=== PATIENT | female | born 1940 | race Caucasian/White ===

== ENCOUNTER → 2016-12-03 | Outpatient (CLI) | payer MEDICARE, OTHER ==
[~2016-12-03] MED LIST: ALLEGRA180 MG PO; BENTYL 10MG10 MG/CAP PO; CALTRATE 600 +1 TAB PO; CARAFATE1 GM PO; CIPRO 250MG TA250 MG PO; COENZYME Q-10200 M1 PO; CYANOCOBAL1000 MCG/M IM; DIFLUCAN200 MG PO; DIPENTUM PO; DIPENTUM250 MG PO; ENZYME PO; EXCEDRIN TENSION HA PO; LASIX 20MG TABL20 MG PO; MACROBID 1100 MG/CAP PO; NEXIUM 20MG20 MG; NEXIUM 40MG40 MG PO; NEXIUM I.V. 40M40 MG; NEXIUM40 MG PO; PERCOCET 325 MG1 TA2 PO; PROBIOTIC FORMU1 CAP PO; PROBIOTIC-MAJOR PO; PYRIDIUM200 M1 PO; TOPROL XL 50MG50 MG PO; TOPROL XL25 MG PO; TYLENOL 500MG500 MG PO; TYLENOL ARTHRI650 M1 PO; ULORIC40 MG PO; ULTRACET TABL1 UDTAB PO; ULTRAM 50MG TAB50 MG PO; VALTREX 50500 MG/TAB PO; VITAMINE200; VOLTAREN 75 DR75 MG PO; ZOFRAN4 M1 PO; ZYRTEC 10MG10 MG PO
== END ==
LOC: MC.RAD 13:00
DX: Z12.31 Encounter for screening mammogram for malignant neoplasm of breast (principal)

== ENCOUNTER 2016-12-17 09:00 | Outpatient (CLI) | payer MEDICARE, OTHER ==
[2006-05-13 07:12] VITALS: BP 127/64
[~2016-12-17] VITALS: Ht 167.7 cm; Wt 83.6 kg
[~2016-12-17 09:00] MED LIST changes: -VITAMINE200
[2016-12-17] MEDS ORDERED: VITAMINE200 (09:40)
[2016-12-17 11:15] LABS: HEMATOCRIT 38.2 % (37.0-47.0); HEMOGLOBIN 12.5 g/dl (12.5-16.0); MEAN CELL VOLUME 97 fl (80.0-100.0); MEAN CORPUSCULAR HEMOGLOBIN 32 pg (27.0-31.0); MEAN CORPUSCULAR HGB CONC 33 g/dl (33.0-37.0); MEAN PLATELET VOLUME 9.2 fl (7.4-10.4); PLATELET COUNT 220 K/mm3 (130-400); RED BLOOD COUNT 3.93 M/mm3 (4.10-5.30); REDCELL DISTRIBUTION WIDTH-CV 12.6 % (11.5-14.5); WHITE BLOOD COUNT 5.5 K/mm3 (4.8-10.8)
[2016-12-17 11:23] LABS: PROTHROMBIN TIME 11.2 SECONDS (9.7-12.8)
[2016-12-17 11:28] LABS: CALCIUM 9.9 mg/dL (8.4-10.2); CREATININE, serum 0.67 mg/dL (0.52-1.25); POTASSIUM 4.2 mmol/L (3.4-5.0)
[2016-12-17 11:33] VITALS: BP 143/74; PULSE 71
[2016-12-17 12:45] VITALS: BP 128/93; PULSE 72
[2016-12-17 13:00] VITALS: BP 127/72; PULSE 67
[2016-12-17 13:15] VITALS: BP 132/65; PULSE 62
[2016-12-17 13:30] VITALS: BP 116/74; PULSE 65
== END 2016-12-17 14:00 | disposition home or self-care (01) ==
LOC: COL.RAD 09:00
PROVIDERS: Internal Medicine Cardiovascular Disease
DX: I08.3 Combined rheumatic disorders of mitral, aortic and tricuspid valves (principal); R94.39 Abnormal result of other cardiovascular function study
CPT/HCPCS: G9654; J2405; J2704

== ENCOUNTER → 2017-02-14 | Outpatient (CLI) | payer MEDICARE, OTHER ==
[~2017-02-14] MED LIST changes: +VITAMINE200
== END ==
LOC: COL.CARD 09:21
DX: R00.2 Palpitations (principal)

== ENCOUNTER → 2017-11-13 | Outpatient (CLI) | payer MEDICARE, OTHER | LOC: MC.RAD 12:54 | DX: Z01.89 Encounter for other specified special examinations (principal) ==

== ENCOUNTER → 2018-01-23 | Outpatient (CLI) | payer MEDICARE, OTHER | LOC: COL.VAS 01-21 10:30 | DX: R60.0 Localized edema (principal) ==

== ENCOUNTER → 2018-02-16 | Outpatient (CLI) | payer MEDICARE, OTHER | LOC: COL.RAD 14:49 | DX: R10.9 Unspecified abdominal pain (principal) ==

== ENCOUNTER 2018-03-17 21:47 | Emergency (ER) | payer MEDICARE, OTHER ==
[2006-05-13 07:12] VITALS: BP 127/64
[~2018-03-17] VITALS: Ht 170.2 cm; Wt 86.4 kg
[2018-03-17 21:50] VITALS: BP 180/77; TEMP 98.4
[2018-03-17] MEDS ORDERED: NORCO 325 MG-51 TAB PO (22:37)
[2018-03-17 23:20] VITALS: PULSE 77
== END 2018-03-17 23:10 | disposition home or self-care (01) ==
LOC: COL.ER 21:47
DX: S52.501A Unspecified fracture of the lower end of right radius, initial encounter for closed fracture (principal); S52.611A Displaced fracture of right ulna styloid process, initial encounter for closed fracture; I10 Essential (primary) hypertension; E03.9 Hypothyroidism, unspecified; W01.0XXA Fall on same level from slipping, tripping and stumbling without subsequent striking against object, initial encounter
CPT/HCPCS: Q4050

== ENCOUNTER → 2018-03-24 | Outpatient (CLI) | payer MEDICARE, OTHER ==
[~2018-03-24] VITALS: Ht 170.2 cm; Wt 88.9 kg
[~2018-03-24] MED LIST changes: +B-121000 MCG PO; -EXCEDRIN TENSION HA PO; +EXCEDRIN1 TAB PO; +NORCO 325 MG-51 TAB PO; +TOPROL XL100 MG PO
[2018-03-24 05:48] VITALS: BP 147/53; PULSE 82
[2018-03-24 07:24] VITALS: BP 131/65; PULSE 94
[2018-03-24 07:25] VITALS: BP 159/68; PULSE 91
[2018-03-24 07:26] VITALS: BP 160/74; PULSE 89
== END ==
LOC: COL.CARD 03-23 05:45
DX: I35.9 Nonrheumatic aortic valve disorder, unspecified (principal)
CPT/HCPCS: A9502; J2785

== ENCOUNTER 2018-03-27 22:14 | Observation (INO) | payer MEDICARE, OTHER ==
[~2018-03-27] VITALS: Ht 170.2 cm; Wt 89.3 kg
[2018-03-27] MEDS ORDERED: DIFLUCAN200 MG PO (23:24)
[2018-03-27] MEDS ORDERED: PRESERVISIONLUT (23:26)
[2018-03-28 00:07] VITALS: BP 134/91; PULSE 80; TEMP 97.5
[2018-03-28 00:13] VITALS: BP 134/91; PULSE 80; TEMP 97.5
[2018-03-28 00:14] LABS: BASO # 0.1 (0.0-0.2); BASO % 0.6 % (0.0-2.0); EOS # 0.2 (0.0-0.7); EOS % 2.5 % (0-4.0); GRAN # 5.2 (1.4-6.5); GRAN % 64.9 % (42.2-75.2); HEMATOCRIT 36.5 % (37.0-47.0); HEMOGLOBIN 12.2 g/dl (12.5-16.0); LYMPH % 25.1 % (20.0-51.0); MEAN CELL VOLUME 94 fl (80.0-100.0); MEAN CORPUSCULAR HEMOGLOBIN 31 pg (27.0-31.0); MEAN CORPUSCULAR HGB CONC 33 g/dl (33.0-37.0); MEAN PLATELET VOLUME 8.6 fl (7.4-10.4); MONO # 0.5 (0.1-0.6); MONO % 6.7 % (1.7-9.3); PLATELET COUNT 264 K/mm3 (130-400); RED BLOOD COUNT 3.89 M/mm3 (4.10-5.30); REDCELL DISTRIBUTION WIDTH-CV 12.9 % (11.5-14.5)
[2018-03-28 00:30] LABS: ALBUMIN 4.2 gm/dL (3.5-5.0); BILIRUBIN,TOTAL 0.3 mg/dL (0.0-1.0); CALCIUM 9.6 mg/dL (8.4-10.2); CREATININE, serum 0.73 mg/dL (0.52-1.25); TOTAL PROTEIN 7.8 gm/dL (6.4-8.2)
[2018-03-28 03:53] VITALS: BP 158/79; PULSE 87; TEMP 98.2
[2018-03-28 09:39] VITALS: BP 159/82; PULSE 88; TEMP 98.1
[2018-03-28] MEDS ORDERED: ULTRAM 50MG TAB50 MG PO (11:03)
[2018-03-28] MEDS ORDERED: OCUVITE1 TA1 PO (11:04)
== END 2018-03-28 12:26 | disposition home or self-care (01) ==
LOC: MEDICAL 22:14
PROVIDERS: Nurse Practitioner
DX: R53.1 Weakness (principal); Z74.09 Other reduced mobility; R51 Headache; J40 Bronchitis, not specified as acute or chronic; M10.00 Idiopathic gout, unspecified site; I10 Essential (primary) hypertension; E78.5 Hyperlipidemia, unspecified; M06.9 Rheumatoid arthritis, unspecified; M81.0 Age-related osteoporosis without current pathological fracture; R73.03 Prediabetes; Z90.49 Acquired absence of other specified parts of digestive tract; Z90.710 Acquired absence of both cervix and uterus; Z88.6 Allergy status to analgesic agent; Z88.1 Allergy status to other antibiotic agents; Z88.3 Allergy status to other anti-infective agents; Z88.0 Allergy status to penicillin; Z88.2 Allergy status to sulfonamides; Z88.8 Allergy status to other drugs, medicaments and biological substances

== ENCOUNTER 2018-04-03 05:56 | Emergency (ER) | payer MEDICARE, OTHER ==
[2006-05-13 07:12] VITALS: BP 127/64
[~2018-04-03] VITALS: Ht 170.2 cm; Wt 86.4 kg
[~2018-04-03 05:56] MED LIST changes: +OCUVITE1 TA1 PO; +PRESERVISIONLUT
[2018-04-03 06:00] VITALS: TEMP 98
[2018-04-03 07:03] LABS: BASO % 0.6 % (0.0-2.0); EOS # 0.2 (0.0-0.7); EOS % 2.2 % (0-4.0); GRAN # 4.5 (1.4-6.5); GRAN % 62.2 % (42.2-75.2); LYMPH % 27.9 % (20.0-51.0); MEAN CELL VOLUME 92 fl (80.0-100.0); MEAN CORPUSCULAR HEMOGLOBIN 31 pg (27.0-31.0); MEAN CORPUSCULAR HGB CONC 34 g/dl (33.0-37.0); MEAN PLATELET VOLUME 8.8 fl (7.4-10.4); MONO # 0.5 (0.1-0.6); MONO % 6.8 % (1.7-9.3); PLATELET COUNT 258 K/mm3 (130-400); RED BLOOD COUNT 3.85 M/mm3 (4.10-5.30); REDCELL DISTRIBUTION WIDTH-CV 12.7 % (11.5-14.5)
[2018-04-03 07:04] LABS: HEMATOCRIT 35.5 % (37.0-47.0)
[2018-04-03 07:07] LABS: INR 1.1 (0.8-3.0); PROTHROMBIN TIME 12.2 SECONDS (9.7-12.8)
[2018-04-03 07:11] LABS: ALANINE AMINOTRANSFERASE 23 U/L (9-52); ALBUMIN 4.2 gm/dL (3.5-5.0); ALKALINE PHOSPHATASE 86 U/L (50-136); ANION GAP 15 mmol/L (7-16); AST,SGOT 23 U/L (15-37); BILIRUBIN,TOTAL 0.4 mg/dL (0.0-1.0); BLOOD UREA NITROGEN 17 mg/dL (7-17); C-REACTIVE PROTEIN 0.6 mg/dL (0.0-0.9); CARBON DIOXIDE 24 mmol/L (22-30); CHLORIDE 99 mmol/L (98-107); CREATININE, serum 0.68 mg/dL (0.52-1.25); GLUCOSE 120 mg/dL (74-106); POTASSIUM 3.8 mmol/L (3.4-5.0); SODIUM 138 mmol/L (137-145); TOTAL PROTEIN 7.8 gm/dL (6.4-8.2)
[2018-04-03 07:22] LABS: TROPONIN-I < 0.012 ng/mL (0.000-0.034)
[2018-04-03 09:31] VITALS: BP 149/105; PULSE 82
[2018-04-03] MEDS ORDERED: PERCOCET 325 MG1 TA2 PO (09:34)
[2018-04-03] MEDS ORDERED: LIDODERM 5% PATC1 EA TP (09:36)
== END 2018-04-03 10:00 | disposition home or self-care (01) ==
LOC: COL.ER 05:56
PROVIDERS: Emergency Medicine
DX: R07.89 Other chest pain (principal)
CPT/HCPCS: Q9967

== ENCOUNTER 2018-04-29 15:39 | Emergency (ER) | payer MEDICARE, OTHER ==
[2006-05-13 07:12] VITALS: BP 127/64
[~2018-04-29] VITALS: Ht 170.2 cm; Wt 86.4 kg
[~2018-04-29 15:39] MED LIST changes: +LIDODERM 5% PATC1 EA TP
[2018-04-29 15:41] VITALS: TEMP 97.7
[2018-04-29 16:19] LABS: BASO % 0.6 % (0.0-2.0); EOS # 0.1 (0.0-0.7); GRAN # 4.2 (1.4-6.5); GRAN % 64.3 % (42.2-75.2); HEMATOCRIT 34.7 % (37.0-47.0); HEMOGLOBIN 11.7 g/dl (12.5-16.0); LYMPH # 1.7 (1.2-3.4); LYMPH % 25.9 % (20.0-51.0); MEAN CELL VOLUME 94 fl (80.0-100.0); MEAN CORPUSCULAR HEMOGLOBIN 32 pg (27.0-31.0); MEAN CORPUSCULAR HGB CONC 34 g/dl (33.0-37.0); MEAN PLATELET VOLUME 9.1 fl (7.4-10.4); MONO # 0.5 (0.1-0.6); MONO % 6.9 % (1.7-9.3); PLATELET COUNT 232 K/mm3 (130-400)
[2018-04-29 16:30] LABS: ALANINE AMINOTRANSFERASE 26 U/L (9-52); ALKALINE PHOSPHATASE 71 U/L (50-136); ANION GAP 13 mmol/L (7-16); AST,SGOT 23 U/L (15-37); BILIRUBIN,TOTAL 0.5 mg/dL (0.0-1.0); BLOOD UREA NITROGEN 14 mg/dL (7-17); C-REACTIVE PROTEIN 0.9 mg/dL (0.0-0.9); CALCIUM 9.6 mg/dL (8.4-10.2); CARBON DIOXIDE 23 mmol/L (22-30); CHLORIDE 99 mmol/L (98-107); CREATININE, serum 0.66 mg/dL (0.52-1.25); GLUCOSE 114 mg/dL (74-106); LIPASE 106 U/L (23-300); POTASSIUM 4.6 mmol/L (3.4-5.0); SODIUM 135 mmol/L (137-145); TOTAL PROTEIN 7.5 gm/dL (6.4-8.2)
[2018-04-29 16:42] LABS: TROPONIN-I < 0.012 ng/mL (0.000-0.034)
[2018-04-29] MEDS ORDERED: BENTYL 20MG20 MG/TAB PO (16:56)
[2018-04-29] MEDS ORDERED: PYRIDIUM 100MG100 MG PO (16:56)
[2018-04-29] MEDS ORDERED: NEXIUM 40MG40 MG PO (16:56)
[2018-04-29 17:45] LABS: COLLECTION METHOD CLEAN CATCH
[2018-04-29 17:52] LABS: PH 7 (5-8); SQUAMOUS EPITHELIAL 0-2 /hpf; URINE APPEARANCE Clear; URINE BACTERIA Rare /hpf; URINE BILIRUBIN Negative (NEGATIVE); URINE BLOOD Negative (NEGATIVE); URINE COLOR Amber; URINE GLUCOSE Negative (NEGATIVE); URINE KETONE Negative (NEGATIVE); URINE LEUKOCYTE ESTERASE 2+ (NEGATIVE); URINE NITRATE Positive (NEGATIVE); URINE PROTEIN(semi-quant) Negative (NEGATIVE); URINE RBC 0-2 /hpf; URINE UROBILINOGEN Negative (NEGATIVE)
[2018-04-29] MEDS ORDERED: PHENERGAN 25 TA25 MG PO (18:44)
[2018-04-29] MEDS ORDERED: CIPRO 500MG TA500 MG PO (18:44)
[2018-04-29 19:00] VITALS: BP 136/61; PULSE 64
== END 2018-04-29 19:15 | disposition home or self-care (01) ==
LOC: COL.ER 15:39
PROVIDERS: Emergency Medicine
DX: N39.0 Urinary tract infection, site not specified (principal); I10 Essential (primary) hypertension; E78.5 Hyperlipidemia, unspecified; K21.9 Gastro-esophageal reflux disease without esophagitis; Z90.49 Acquired absence of other specified parts of digestive tract; Z90.710 Acquired absence of both cervix and uterus; Z87.442 Personal history of urinary calculi
CPT/HCPCS: J2270; J2405; J2550; J7030; Q9967

== ENCOUNTER → 2018-06-16 | Outpatient (CLI) | payer MEDICARE, OTHER ==
[~2018-06-16] MED LIST changes: +BENTYL 20MG20 MG/TAB PO; +CIPRO 500MG TA500 MG PO; +PHENERGAN 25 TA25 MG PO; +PYRIDIUM 100MG100 MG PO
== END ==
LOC: MC.RAD 06-12 10:30
DX: N63.23 Unspecified lump in the left breast, lower outer quadrant (principal)

== ENCOUNTER 2018-11-13 08:44 | Emergency (ER) | payer MEDICARE, OTHER ==
[2006-05-13 07:12] VITALS: BP 127/64
[~2018-11-13] VITALS: Ht 170.2 cm; Wt 86.4 kg
[2018-11-13 09:36] LABS: BASO % 0.6 % (0.0-2.0); EOS # 0.1 (0.0-0.7); EOS % 2.7 % (0-4.0); GRAN # 3.1 (1.4-6.5); LYMPH # 1.7 (1.2-3.4); LYMPH % 31.9 % (20.0-51.0); MEAN CELL VOLUME 93 fl (80.0-100.0); MEAN CORPUSCULAR HEMOGLOBIN 32 pg (27.0-31.0); MEAN CORPUSCULAR HGB CONC 34 g/dl (33.0-37.0); MEAN PLATELET VOLUME 9.1 fl (7.4-10.4); MONO # 0.3 (0.1-0.6); MONO % 5.6 % (1.7-9.3); PLATELET COUNT 187 K/mm3 (130-400); RED BLOOD COUNT 3.81 M/mm3 (4.10-5.30)
[2018-11-13 09:44] LABS: HEMATOCRIT 35.6 % (37.0-47.0)
[2018-11-13 09:58] LABS: ALBUMIN 4.3 gm/dL (3.5-5.0); BILIRUBIN,TOTAL 0.4 mg/dL (0.0-1.0); C-REACTIVE PROTEIN 0.7 mg/dL (0.0-0.9); CALCIUM 9.9 mg/dL (8.4-10.2); CREATININE, serum 0.6 mg/dL (0.52-1.25); POTASSIUM 3.9 mmol/L (3.4-5.0); TOTAL PROTEIN 7.2 gm/dL (6.4-8.2)
[2018-11-13 10:04] LABS: COLLECTION METHOD CLEAN CATCH
[2018-11-13 10:11] LABS: PH 6 (5-8); SQUAMOUS EPITHELIAL None Seen /hpf; URINE APPEARANCE Clear; URINE BACTERIA Rare /hpf; URINE BILIRUBIN Negative (NEGATIVE); URINE BLOOD Negative (NEGATIVE); URINE COLOR Amber; URINE GLUCOSE Negative (NEGATIVE); URINE KETONE Negative (NEGATIVE); URINE LEUKOCYTE ESTERASE Negative (NEGATIVE); URINE NITRATE Positive (NEGATIVE); URINE PROTEIN(semi-quant) Negative (NEGATIVE); URINE RBC 0-2 /hpf; URINE UROBILINOGEN >=4.0 mg/dL (NEGATIVE)
[2018-11-13] MEDS ORDERED: PERCOCET 325 MG1 TA2 PO (10:30)
[2018-11-13] MEDS ORDERED: LIDODERM 5% PATC1 EA TP (10:49)
[2018-11-13 11:08] VITALS: BP 155/68; PULSE 69; TEMP 96.6
== END 2018-11-13 11:08 | disposition home or self-care (01) ==
LOC: COL.ER 08:44
PROVIDERS: Physician Assistant
DX: R10.9 Unspecified abdominal pain (principal); Z90.710 Acquired absence of both cervix and uterus; Z90.49 Acquired absence of other specified parts of digestive tract; Z98.890 Other specified postprocedural states

== ENCOUNTER 2019-03-08 14:49 | Outpatient (RCR) | payer MEDICARE, OTHER | END 2019-05-20 | disposition home or self-care (01) | LOC: COL.CR | DX: Z48.812 Encounter for surgical aftercare following surgery on the circulatory system (principal); Z95.2 Presence of prosthetic heart valve ==

== ENCOUNTER → 2019-08-04 | Outpatient (CLI) | payer MEDICARE, OTHER | LOC: MC.RAD 11:00 | DX: Z12.31 Encounter for screening mammogram for malignant neoplasm of breast (principal) ==

== ENCOUNTER → 2020-01-05 | Outpatient (CLI) | payer MEDICARE, OTHER | LOC: COL.RAD 09:18 | DX: R39.14 Feeling of incomplete bladder emptying (principal); R10.12 Left upper quadrant pain ==

== ENCOUNTER → 2020-09-14 | Outpatient (CLI) | payer MEDICARE, OTHER | LOC: MC.RAD 08-10 13:00 | DX: Z12.31 Encounter for screening mammogram for malignant neoplasm of breast (principal) ==

== ENCOUNTER → 2020-12-04 | Outpatient (CLI) | payer MEDICARE, OTHER | LOC: COL.VAS 12:29 | DX: I08.1 Rheumatic disorders of both mitral and tricuspid valves (principal); I27.20 Pulmonary hypertension, unspecified; Z95.2 Presence of prosthetic heart valve ==

== ENCOUNTER 2021-03-28 12:29 | Emergency (ER) | payer MEDICARE, OTHER ==
[2006-05-13 07:12] VITALS: BP 127/64
[~2021-03-28] VITALS: Ht 167.6 cm; Wt 86.4 kg
[2021-03-28 14:11] LABS: COLLECTION METHOD CLEAN CATCH
[2021-03-28 14:23] LABS: PH 7 (5-8); SQUAMOUS EPITHELIAL 0-2 /hpf; URINE APPEARANCE Clear; URINE BACTERIA None Seen /hpf; URINE BILIRUBIN Negative (NEGATIVE); URINE BLOOD Negative (NEGATIVE); URINE COLOR Amber; URINE GLUCOSE Negative (NEGATIVE); URINE KETONE Negative (NEGATIVE); URINE LEUKOCYTE ESTERASE Negative (NEGATIVE); URINE NITRATE Positive (NEGATIVE); URINE PROTEIN(semi-quant) Negative (NEGATIVE); URINE RBC 0-2 /hpf; URINE UROBILINOGEN >=4.0 mg/dL (NEGATIVE)
[2021-03-28] MEDS ORDERED: ULTRAM 50MG TAB50 MG PO (15:04)
[2021-03-28 15:14] VITALS: BP 165/69; PULSE 65
== END 2021-03-28 15:17 | disposition home or self-care (01) ==
LOC: COL.ER 12:29
PROVIDERS: Emergency Medicine
DX: B02.29 Other postherpetic nervous system involvement (principal); I10 Essential (primary) hypertension; Z88.1 Allergy status to other antibiotic agents; Z88.0 Allergy status to penicillin; Z88.2 Allergy status to sulfonamides; Z88.6 Allergy status to analgesic agent; Z91.040 Latex allergy status; Z88.8 Allergy status to other drugs, medicaments and biological substances; Z88.5 Allergy status to narcotic agent; Z87.19 Personal history of other diseases of the digestive system; Z98.890 Other specified postprocedural states

== ENCOUNTER 2021-11-22 09:27 | Emergency (ER) | payer MEDICARE, OTHER ==
[~2021-11-22] VITALS: Ht 170.2 cm; Wt 82.7 kg
[2021-11-22 10:10] LABS: BASO % 0.8 % (0.0-2.0); EOS # 0.1 K/mm3 (0.0-0.7); EOS % 1.9 % (0.0-4.0); GRAN # 3.4 K/mm3 (1.4-6.5); GRAN % 64.8 % (42.2-75.2); HEMOGLOBIN 11.6 g/dl (12.5-16.0); LYMPH # 1.3 K/mm3 (1.2-3.4); LYMPH % 25.7 % (20.0-51.0); MEAN CELL VOLUME 93 fl (80.0-100.0); MEAN CORPUSCULAR HEMOGLOBIN 31 pg (27-31); MEAN CORPUSCULAR HGB CONC 34 g/dl (33.0-37.0); MEAN PLATELET VOLUME 8.8 fl (7.4-10.4); MONO # 0.3 K/mm3 (0.1-0.6); MONO % 6.4 % (1.7-9.3); PLATELET COUNT 218 K/mm3 (130-400); RED BLOOD COUNT 3.73 M/mm3 (4.10-5.30); REDCELL DISTRIBUTION WIDTH-CV 12.5 % (11.5-14.5)
[2021-11-22 10:11] LABS: HEMATOCRIT 34.5 % (37.0-47.0)
[2021-11-22 10:19] LABS: PROTHROMBIN TIME 11.1 SECONDS (9.7-12.8)
[2021-11-22 10:22] LABS: PARTIAL THROMBOPLASTIN TIME 34.4 SECONDS (26.0-37.0)
[2021-11-22 10:26] LABS: ALANINE AMINOTRANSFERASE 13 U/L (0-55); ALBUMIN 3.9 gm/dL (3.4-4.8); ALKALINE PHOSPHATASE 74 U/L (40-150); ANION GAP 10 mmol/L (7-16); AST,SGOT 14 U/L (5-34); BILIRUBIN,TOTAL 0.5 mg/dL (0.2-1.2); BLOOD UREA NITROGEN 15 mg/dL (10-20); CALCIUM 9.5 mg/dL (8.4-10.2); CARBON DIOXIDE 23 mmol/L (23-31); CHLORIDE 103 mmol/L (98-107); CREATININE, serum 0.72 mg/dL (0.57-1.11); GLUCOSE 113 mg/dL (70-99); POTASSIUM 4.3 mmol/L (3.5-4.5); SODIUM 136 mmol/L (136-145)
[2021-11-22 10:45] LABS: TROPONIN-I < 0.010 ng/mL (0.00-0.033)
[2021-11-22 14:04] VITALS: BP 153/62; PULSE 63
== END 2021-11-22 14:04 | disposition home or self-care (01) ==
LOC: COL.ER 09:27
PROVIDERS: Emergency Medicine
DX: R07.89 Other chest pain (principal); I10 Essential (primary) hypertension; E78.5 Hyperlipidemia, unspecified; I25.10 Atherosclerotic heart disease of native coronary artery without angina pectoris; M06.9 Rheumatoid arthritis, unspecified; Z20.822 Contact with and (suspected) exposure to COVID-19; Z91.040 Latex allergy status; Z79.899 Other long term (current) drug therapy
CPT/HCPCS: Q9967

== ENCOUNTER → 2022-03-12 | Outpatient (CLI) | payer MEDICARE, OTHER | LOC: MC.RAD 10-01 13:45 | DX: Z12.31 Encounter for screening mammogram for malignant neoplasm of breast (principal) ==

== ENCOUNTER 2023-11-29 13:52 | Emergency (ER) | payer MEDICARE, OTHER ==
[~2023-11-29] VITALS: Ht 167.6 cm; Wt 77.3 kg
[~2023-11-29 13:52] MED LIST changes: +ALLEGRA 180MG180 MG PO; +AZO URINARY PAI95 MG PO; +COZAAR 50MG50 MG/TAB PO; +MAGNESIUM250 M1 PO; +MOXEZA 3 ML3 ML OP; +PRESERVISION1 SGL PO; +PROTONIX 40MG T40 MG PO; +SYSTANE 0.4%-0.1 SOL OU; +THE MEDICINE S200 M2 PO; +VITAMIND3 5000 PO
[2023-11-29 14:46] LABS: BASO % 0.5 % (0.0-2.0); EOS % 0.2 % (0.0-4.0); GRAN # 2.8 K/mm3 (1.4-6.5); GRAN % 65.3 % (42.2-75.2); HEMATOCRIT 34.1 % (37.0-47.0); HEMOGLOBIN 11.3 g/dl (12.5-16.0); LYMPH # 1.1 K/mm3 (1.2-3.4); LYMPH % 26.3 % (20.0-51.0); MEAN CELL VOLUME 92 fl (80.0-100.0); MEAN CORPUSCULAR HEMOGLOBIN 30 pg (27-31); MEAN CORPUSCULAR HGB CONC 33 g/dl (33.0-37.0); MEAN PLATELET VOLUME 8.5 fl (7.4-10.4); MONO # 0.3 K/mm3 (0.1-0.6); MONO % 7.5 % (1.7-9.3); PLATELET COUNT 233 K/mm3 (130-400); RED BLOOD COUNT 3.72 M/mm3 (4.10-5.30); REDCELL DISTRIBUTION WIDTH-CV 12.6 % (11.5-14.5)
[2023-11-29 15:18] LABS: ALBUMIN 4.1 gm/dL (3.4-4.8); BILIRUBIN,TOTAL 0.7 mg/dL (0.2-1.2); CALCIUM 9.8 mg/dL (8.4-10.2); CREATININE, serum 0.67 mg/dL (0.57-1.11); POTASSIUM 4.2 mmol/L (3.5-4.5); TOTAL PROTEIN 7.3 gm/dL (6.2-8.1)
[2023-11-29 15:54] LABS: COLLECTION METHOD CLEAN CATCH
[2023-11-29 16:16] LABS: URINE APPEARANCE Clear (CLEAR/HAZY); URINE BLOOD Negative (NEGATIVE); URINE COLOR Yellow (YELLOW); URINE GLUCOSE Negative (NEGATIVE); URINE KETONE Negative (NEGATIVE); URINE NITRATE Negative (NEGATIVE); URINE PROTEIN(semi-quant) Negative (NEGATIVE); URINE UROBILINOGEN 0.2 E.U/dL (0.2-1.0)
[2023-11-29 16:17] LABS: SQUAMOUS EPITHELIAL 0-2 /hpf (0-10)
[2023-11-29 16:55] VITALS: BP 150/61; PULSE 63; TEMP 97.7
== END 2023-11-29 16:55 | disposition home or self-care (01) ==
LOC: COL.ER 13:52
PROVIDERS: Physician Assistant
DX: R19.7 Diarrhea, unspecified (principal); T37.5X5A Adverse effect of antiviral drugs, initial encounter; U07.1 COVID-19; R11.2 Nausea with vomiting, unspecified; R10.13 Epigastric pain; Z91.040 Latex allergy status
CPT/HCPCS: J2405; J7030

== ENCOUNTER 2024-07-25 10:00 | Emergency (ER) | payer MEDICARE, OTHER ==
[~2024-07-25] VITALS: Ht 170.2 cm; Wt 79.5 kg
[2024-07-25 10:03] VITALS: TEMP 97.9
[2024-07-25] MEDS ORDERED: ALLEGRA 180MG180 MG PO (10:55)
[2024-07-25] MEDS ORDERED: ASPIRIN 81M81 MG/TA2 PO (10:55)
[2024-07-25 12:34] VITALS: BP 156/62; PULSE 61
== END 2024-07-25 12:34 | disposition home or self-care (01) ==
LOC: COL.ER 10:00
DX: S20.211A Contusion of right front wall of thorax, initial encounter (principal); M54.2 Cervicalgia; W18.30XA Fall on same level, unspecified, initial encounter; Y92.000 Kitchen of unspecified non-institutional (private) residence as the place of occurrence of the external cause

== ENCOUNTER → 2024-08-16 | Outpatient (CLI) | payer MEDICARE, OTHER ==
[~2024-08-16] MED LIST changes: +ASPIRIN 81M81 MG/TA2 PO
== END ==
LOC: COL.VAS 10:24
DX: I08.0 Rheumatic disorders of both mitral and aortic valves (principal); I27.20 Pulmonary hypertension, unspecified; Z95.2 Presence of prosthetic heart valve; Z98.890 Other specified postprocedural states